=== PATIENT | female | born 1960 | race Caucasian/White ===

== ENCOUNTER → 2023-05-25 | Outpatient (CLI) | payer BC, SELFPAY ==
--- NOTE | 2023-05-25 15:28 | BI_ITS ---
MAMMOGRAPHY - BILATERAL SCREENING REASON FOR EXAM: Female, 62 years old. Routine annual screening examination. PERTINENT HISTORY: Non-contributory. TECHNIQUE: Digital bilateral breast fátima (3D mammographic acquisition) in the CC and MLO projections. 2-D mediolateral oblique (MLO) and craniocaudad (CC) views of both breasts were obtained. CAD: Full Field Digital Mammography with Computer Added Detection was performed. COMPARISON: Comparison is made with prior outside examination to generate third 2022. FINDINGS: Breast Composition: The breasts are heterogeneously dense, which may obscure small masses. There are no dominant masses or suspicious calcifications. Stable asymmetry of breast tissue were more breast tissue is seen in the right breast as compared to the left side. No other significant abnormalities are identified. There has been no significant change since the prior study. BI/SCRN MAMM (CAD)W/FÁTIMA BILAT IMPRESSION: Stable bilateral screening mammogram. Yearly follow-up mammogram recommended. (A) ASSESSMENT CATEGORY: BIRADS Category 2: Benign. A letter regarding these results will be sent to the patient by the facility within 30 days. Approximately 10% of breast cancers are not detected by mammography. A normal mammogram should not delay biopsy of a clinically suspicious abnormality. [id number] Electronically Signed: Kendrick Burch MD at 9:00 EDT ,
--- NOTE | 2023-05-25 15:32 | BD_ITS ---
STUDY: DUAL ENERGY X-RAY ABSORPTIOMETRY / DXA REASON FOR EXAM: Female, 62 years old. [id number] TECHNIQUE: Bone Mineral Density (BMD) measurements of lumbar spine and bilateral hips were obtained. COMPARISON: None. FINDINGS: Lumbar Spine (L1-L4): g/cm2 (0.909) / T-score (-1.3) / Z-score (0.4) Findings are suggestive of osteopenia with a low fracture risk. Left Femur Total: g/cm2 (0.703) / T-score (-2.0) / Z-score (-0.8) Left Femoral Neck: g/cm2 (0.545) / T-score (-2.7) / Z-score (-1.3) Right Femur Total: g/cm2 (0.722) / T-score (-1.8) / Z-score (-0.7) Right Femoral Neck: g/cm2 (0.577) / T-score (-2.4) / Z-score (-1.0) BD/Dexa Bone Density Study IMPRESSION: The patient is considered osteoporotic as outlined below according to World Costa Organization (WHO) criteria with a high fracture risk. Reference Information: The T-score is the number of standard deviations above or below the standard which is normal for young adults at their peak bone mineral density. The World Health Organization (WHO) interprets the T-scores as follows: Above -1 Normal bone density Between -1 and -2.5 Osteopenia Equal to / or below -2.5 Osteoporosis As a practical clinical guideline, osteopenia may be graded as follows: Mild -1 through -1.5 Moderate -1.6 through -2.0 Severe -2.1 through -2.4 The Z-score is the number of standard deviations above or below age-matched controls. A Z-score of less than -1.5 would be considered abnormal. References: 1. NIH Osteoporosis and Related Bone Diseases www osteo.org 2. International Society for Clinical Densitometry www iscd.org 3. National Osteoporosis Foundation www nof.org Electronically Signed: Kendrick Burch MD at 15:15 EDT ,
--- OUTSIDE RECORDS SUMMARY | 2023-05-26 02:16 | XMS RPT_ITS | CCD ---
Author Name Unknown Address [id number] [place] [address] Organization [facility] Care Team Providers Care Senior Contracts Administrator Name Role Phone JULIO WALSH Unavailable Unavailable STENCEL, JULIO Brown Unavailable Unavailable Stencel, Julio Unavailable Unavailable Stencel, Julio Unavailable Unavailable Stencel, Julio Unavailable Unavailable Stencel, Julio Unavailable Unavailable Stencel, Julio Unavailable Unavailable Stencel, Julio Unavailable Unavailable Stencel, Julio Unavailable Unavailable Stencel, Julio Unavailable Unavailable Stencel, Julio Brown Unavailable Unavailable Unavailable JULIO WALSH Referring Unavailab le STENCEL, JULIO JAIME Attending Unavailab le STENCEL, JULIO JAIME Primary Care Unavailab le STENCEL, JULIO JAIME Primary Care Unavailab le STENCEL, JULIO JAIME Referring Unavailab le STENCEL, JULIO JAIME Attending Unavailab le Stencel Julio KILGORE Primary Care Provider Julio Walsh MD Unavailable Stensharon, Dr. Julio Jaime Referring Unava ilable Stencel, Dr. Julio Jaime Attending Unava ilable Stencel, Dr. Julio Jaime Primary Care Unava ilable Stencel, Dr. Julio Jaime Attending Unava ilable Stencel, Dr. Julio Jaime Primary Care Unava ilable STENCEL, JULIO Referring Unavailable SADIA SETHI C Attending Unavailable STENCELJULIO Referring Unavailable STENCELJULIO Primary Care Unavailable LADONNA SADIA C Referring Unavailable STENCELJULIO Primary Care Unavailable ANNA ALLISON Referring Unavailable STENCELJULIO Primary Care Unavailable LADONNA SADIA C Referring Unavailable STENCEL, JULIO Brown Primary Care Unavailable SADIA SETHI C Referring Unavailable STENCEL, JULIO Brown Primary Care Unavailable STENCELJULIO Primary Care Unavailable STENCELJULIO Attending Unavailable STENCEL, JULIO D Primary Care Unavailable ANNA ALLISON Attending Unavailable JULIO WALSH Primary Care Unavailable JULIO WALSH Attending Unavailable JULIO WALSH Primary Care Unavailable Allergies Allergy Classification Reported Allergen(s) Allergy Type Date of Onset Reaction(s) Facility (1 source) No Known Medication Allergies; Translations: [No Known Medication Allergies] Propensity to adverse reactions to drug (disorder) [facility] Repository Medications Current Medications Medication Drug Class(es) Dates Sig (Normalized) Sig (Original) acetaminophen 250 mg / aspirin 250 mg / caffeine 65 mg oral tablet (5 sources) Platelet Aggregation Inhibitor, Nonsteroidal Anti-inflammatory Drug, Central Nervous System Stimulant, Methylxanthine take 1 tablet by mouth every six hours as needed aspirin-acetaminophen- caffeine (Excedrin Migraine) 250-250-65 mg tablet Take 1 tablet by mouth every 6 hours if needed for headaches. 0 Active ascorbic acid 100 mg/ml oral solution (5 sources) Vitamin C ascorbic acid (V itamin C) 500 mg/5 mL liquid Take by mouth once daily. 0 Active calcium carb-vitamin D3-vit K2 600 mg-1,000 unit-90 mcg tablet (4 sources) take 1 tablet by mouth once daily calcium carb-vitamin D3-vit K2 600 mg-1,000 unit-90 mcg tablet Take 1 tablet by mouth once daily. 0 Active calcium citrate 250 mg / ergocalciferol 100 mg oral tablet (5 sources) Provitamin D2 Compound take 1 tablet by mouth twice daily calcium citrate-vitamin D2 250 mg-2.5 mcg (100 unit) tablet Take 1 tablet by mouth 2 times a day. 0 Active cyclobenzaprine hydrochloride 10 mg oral tablet (6 sources) Muscle Relaxant Start: 12-04-19 End: 12-03-19 24 take 1 tablet by mouth once daily in the evening cyclobenzaprine (Flexeril) 10 mg tablet Indications: Thoracolumbar back pain Take 1 tablet (10 mg) by mouth once daily in the evening. 30 tablet 11 12/03/2022 12/03/2023 Active hydroCHLOROthiazide 12.5 mg oral capsule (17 sources) Thiazide Diuretic Start: 03-01-20 23 End: 02-29-20 24 take 1 capsule by mouth once daily hydroCHLOROthiazide (Microzide) 12.5 mg capsule Indications: Hypertension, unspecified type Take 1 capsule (12.5 mg) by mouth once daily. 90 capsule 3 03/01/2023 02/29/2024 Active Completed/Discontinued Medications Medication Drug Class(es) Dates Sig (Normalized) Sig (Original) diazePAM 2 mg oral tablet (2 sources) Benzodiazepine Start: 01-18-2023 End: 03-16-2023 diazePAM (Valium) 2 mg tablet Indications: Anxiety Take 1 an hour before MRI. Repeat if needed. 2 tablet 0 01/18/2023 03/16/2023 Discontinued (Therapy completed) Progesterone CREA (11 sources) Progesterone CRE A 1 GEORGE, TOPICAL, APPLY TO THIGHS DAILY Quantity: 0 Refills: 0 Ordered: 07-Feb-2019 DO Active terbinafine 250 mg oral tablet (8 sources) Allylamine Antifungal Start: 02-13-2019 take 1 tablet by mouth once daily Terbinafine HCl - 250 MG Oral Tablet TAKE 1 TABLET DAILY DIRECTED. Quantity: 90 Refills: 0 Ordered: 15-Feb-2020 Julio Walsh MD Start : 13-Feb-2019 Active Unspecified Medication (11 sources) Unspecified Medication ESTROGEN CREAM COMPOUNDED AT [facility] Quantity: 0 Refills: 0 Ordered: 15-Feb-2020 DO Active Problems Active Problems Problem Classification Problem Date Documented Date Episodic/Chronic Essential hypertension (20 sources) Hypertensive disorder; Translations: [Unspecified essential hypertension] Onset: 09-28-2022 09-28-2022 Chronic Headache; including migraine (17 sources) Migraine; Translations: [Migraine, unspecified, without mention of intractable migraine without mention of status migrainosus] Onset: 09-28-2022 09-28-2022 Chronic Immunizations and screening for infectious disease (20 sources) Patient encounter status; Translations: [Other specified vaccination] Resolved: 02-15-2020 04-15-2023 Episodic Other circulatory disease (4 sources) Other specified symptoms and signs involving the circulatory and respiratory systems; Translations: [Other symptoms involving cardiovascular system] Onset: 03-25-2023 03-25-2023 Episodic Other connective tissue disease (4 sources) Low back pain; Translations: [Myalgia, other site] Onset: 03-19-2023 02-25-2023 Episodic Other connective tissue disease (2 sources) Myalgia, other site; Translations: [Myalgia, other site] Onset: 03-19-2023 Episodic Other ear and sense organ disorders (3 sources) Tinnitus; Translations: [Other specified disorders of right ear] 03-16-2023 Episodic Other ear and sense organ disorders (4 sources) Other specified disorders of right ear; Translations: [Other specified disorders of right ear] Onset: 03-16-2023 Episodic Other nervous system disorders (2 sources) Other chronic pain; Translations: [Other chronic pain] Onset: 02-25-2023 Chronic Other non-traumatic joint disorders (3 sources) Chronic pain of right upper limb; Translations: [Pain in joint, shoulder region] Episodic Other nutritional; endocrine; and metabolic disorders (3 sources) Overweight in adulthood with body mass index of 25 or more but less than 30; Translations: [Overweight] Episodic Other screening for suspected conditions (not mental disorders or infectious disease) (6 sources) Encounter for screening mammogram for malignant neoplasm of breast; Translations: [Encntr screen mammogram for malignant neoplasm of breast] Onset: 03-17-2022 Episodic Residual codes; unclassified (12 sources) Menopause present; Translations: [Symptomatic menopausal or female climacteric states] 04-15-2023 Episodic Residual codes; unclassified (3 sources) Insomnia; Translations: [Insomnia, unspecified] Episodic Residual codes; unclassified (2 sources) Asymptomatic menopausal state; Translations: [Asymptomatic menopausal state] Onset: 04-15-2023 Episodic Spondylosis; intervertebral disc disorders; other back problems (1 source) Spondylosis without myelopathy or radiculopathy, lumbar region; Translations: [Spondylosis w/o myelopathy or radiculopathy, lumbar region] Onset: 12-04-2022 Chronic Unclassified (4 sources) Unspecified lump in the left breast, unspecified quadrant; Translations: [Unspecified lump in the left breast, unspecified quadrant] Onset: 08-24-2017 Unclassified (4 sources) Low back pain, unspecified; Translations: [Low back pain, unspecified] Onset: 12-03-2022 Past or Other Problems Problem Classification Problem Date Documented Date Episodic/Chronic Abdominal pain (17 sources) Indigestion; Translations: [Dyspepsia and other specified disorders of function of stomach] Onset: 09-28-2022 09-28-2022 Episodic Mycoses (17 sources) Onychomycosis of toenails; Translations: [Dermatophytosis of nail] Onset: 09-28-2022 09-28-2022 Episodic Other nervous system disorders (16 sources) Loss of taste; Translations: [Disturbances of sensation of smell and taste] Onset: 09-28-2022 09-28-2022 Episodic Spondylosis; intervertebral disc disorders; other back problems (17 sources) Backache; Translations: [Thoracolumbar back pain] Onset: 12-03-2022 12-03-2022 Episodic Unclassified (3 sources) Low back pain, unspecified; Translations: [Low back pain, unspecified] Onset: 12-03-2022 Unclassified (3 sources) Onset: 03-19-2023 03-19-2023 Results Test Name Value Interpretation Reference Range Facil ity Vital Signs Date Time Vital Sign Value Performing Clinician Facility 04-15-2023 07:57-0500 Body height 170.2 cm Julio Walsh MD Work Phone: [facility] 04-15-2023 07:57-0500 Body mass index (BMI) [Ratio] 25.87 kg/m2 Julio Walsh MD Work Phone: [facility] 04-15-2023 07:57-0500 Body weight 74.93 kg Julio Walsh MD Work Phone: [facility] 04-15-2023 07:57-0500 Diastolic blood pressure 76 mm[Hg] Julio Walsh MD Work Phone: [facility] 04-15-2023 07:57-0500 Heart rate 77 /min Julio Walsh MD Work Phone: [facility] 04-15-2023 07:57-0500 SaO2% (BldA) [Mass fraction] 97 % Julio Walsh MD Work Phone: [facility] 04-15-2023 07:57-0500 Systolic blood pressure 132 mm[Hg] Julio Walsh MD Work Phone: [facility] 03-16-2023 13:30-0500 Body height 170.2 cm Anna Allison MD Work Phone: [facility] 03-16-2023 13:30-0500 Body mass index (BMI) [Ratio] 25.83 kg/m2 Anna Allison MD Work Phone: [facility] 03-16-2023 13:30-0500 Body weight 74.8 kg Anna Allison MD Work Phone: [facility] 03-16-2023 13:30-0500 Diastolic blood pressure 72 mm[Hg] Anna Allison MD Work Phone: [facility] 03-16-2023 13:30-0500 Heart rate 62 /min Anna Allison MD Work Phone: [facility] 03-16-2023 13:30-0500 SaO2% (BldA) [Mass fraction] 98 % Anna Allison MD Work Phone: [facility] 03-16-2023 13:30-0500 Systolic blood pressure 140 mm[Hg] Anna Allison MD Work Phone: [facility] 02-25-2023 13:05-0500 Body height 170.2 cm Sadiapreston Sethi PA-C Work Phone: [facility] 02-25-2023 13:05-0500 Body mass index (BMI) [Ratio] 26.47 kg/m2 Sadiapreston Sethi PA-C Work Phone: [facility] 02-25-2023 13:05-0500 Body weight 76.66 kg Sadiapreston Sethi PA-C Work Phone: [facility] 02-25-2023 13:05-0500 Diastolic blood pressure 99 mm[Hg] Sadia Sethi PA-C Work Phone: [facility] 02-25-2023 13:05-0500 Heart rate 62 /min Sadiapreston Sethi PA-C Work Phone: [facility] 02-25-2023 13:05-0500 Respiratory rate 20 /min Sadiapreston Sethi PA-C Work Phone: [facility] 02-25-2023 13:05-0500 Systolic blood pressure 159 mm[Hg] Sadia Sethi PA-C Work Phone: [facility] 12-03-2022 13:44-0400 Body height 170.2 cm Julio Walsh MD Work Phone: [facility] 12-03-2022 13:44-0400 Body mass index (BMI) [Ratio] 26.2 kg/m2 Julio Walsh MD Work Phone: [facility] 12-03-2022 13:44-0400 Body weight 75.89 kg Julio Walsh MD Work Phone: [facility] 12-03-2022 13:44-0400 Diastolic blood pressure 80 mm[Hg] Julio Walsh MD Work Phone: [facility] 12-03-2022 13:44-0400 Heart rate 61 /min Julio Walsh MD Work Phone: [facility] 12-03-2022 13:44-0400 SaO2% (BldA) [Mass fraction] 95 % Julio Walsh MD Work Phone: [facility] 12-03-2022 13:44-0400 Systolic blood pressure 148 mm[Hg] Julio Walsh MD Work Phone: [facility] 04-13-2022 15:59-0500 Body height 170.18 cm Julio Walsh Work Phone: [facility] Work Phone: 04-13-2022 15:59-0500 Body mass index (BMI) [Ratio] 26.56 kg/m2 Julio Walsh Work Phone: [facility] Work Phone: 04-13-2022 15:59-0500 Body surface area Derived from formula 1.89 m2 Julio Walsh Work Phone: [facility] Work Phone: 04-13-2022 15:59-0500 Body weight 76.91 kg Julio Walsh Work Phone: [facility] Work Phone: 04-13-2022 15:59-0500 Diastolic blood pressure 86 mm[Hg] Julio Walsh Work Phone: [facility] Work Phone: 04-13-2022 15:59-0500 Heart rate 57 /min Julio Walsh Work Phone: [facility] Work Phone: 04-13-2022 15:59-0500 SaO2% (BldA) [Mass fraction] 98 % Julio Walsh Work Phone: [facility] Work Phone: 04-13-2022 15:59-0500 Systolic blood pressure 130 mm[Hg] Julio Walsh Work Phone: [facility] Work Phone: 02-26-2022 15:56-0500 Body height 170.18 cm Julio Walsh Work Phone: [facility] Work Phone: 02-26-2022 15:56-0500 Body mass index (BMI) [Ratio] 26.21 kg/m2 Julio Adornocel Work Phone: [facility] Work Phone: 02-26-2022 15:56-0500 Body surface area Derived from formula 1.87 m2 Julio Walsh Work Phone: [facility] Work Phone: 02-26-2022 15:56-0500 Body weight 75.89 kg Julio Walsh Work Phone: [facility] Work Phone: 02-26-2022 15:56-0500 Diastolic blood pressure 84 mm[Hg] Julio Walsh Work Phone: [facility] Work Phone: 02-26-2022 15:56-0500 Heart rate 62 /min Julio Walsh Work Phone: [facility] Work Phone: 02-26-2022 15:56-0500 SaO2% (BldA) [Mass fraction] 97 % Julio Walsh Work Phone: [facility] Work Phone: 02-26-2022 15:56-0500 Systolic blood pressure 128 mm[Hg] Julio Walsh Work Phone: [facility] Work Phone: 02-20-2021 15:56-0500 Body height 170.18 cm Julio Walsh Work Phone: [facility] Work Phone: 02-20-2021 15:56-0500 Body mass index (BMI) [Ratio] 26.21 kg/m2 Julio Walsh Work Phone: [facility] Work Phone: 02-20-2021 15:56-0500 Body surface area Derived from formula 1.87 m2 Julio Walsh Work Phone: [facility] Work Phone: 02-20-2021 15:56-0500 Body temperature 96.9 [degF] Julio Walsh Work Phone: [facility] Work Phone: 02-20-2021 15:56-0500 Body weight 75.92 kg Julio Walsh Work Phone: [facility] Work Phone: 02-20-2021 15:56-0500 Diastolic blood pressure 80 mm[Hg] Julio Walsh Work Phone: [facility] Work Phone: 02-20-2021 15:56-0500 Heart rate 57 /min Julio Walsh Work Phone: [facility] [facility] Work Phone: 02-20-2021 15:56-0500 SaO2% (BldA) [Mass fraction] 98 % Julio Walsh Work Phone: [facility] Work Phone: 02-20-2021 15:56-0500 Systolic blood pressure 134 mm[Hg] Julio Brown Jillian Work Phone: [facility] [facility] Work Phone: Encounters Encounter Date Encounter Type Care Provider Facility Start: 04-15-2023 End: 04-15-2023 ambulatory [facility] Start: 04-15-2023 End: 04-15-2023 Encounter for general adult medical examination without abnormal findings [facility] Ambulatory Start: 04-15-2023 End: 04-15-2023 Patient encounter status Julio Walsh MD Work Phone: [facility] Work Phone: Start: 04-15-2023 End: 04-15-2023 Periodic preventive med est patient 40-64yrs Julio Walsh MD Work Phone: [facility] Procedures Date Procedure Procedure Detail Performing Clinician Start: 04-10-2023 CBC panel - Blood by Automated count JULIO WALSH Start: 04-10-2023 Comprehensive metabo lic 2000 panel - Serum or Plasma JULIO WALSH Start: 04-10-2023 Thyrotropin [Units/v olume] in Serum or Plasma JULIO WALSH Start: 04-06-2023 FOLLOW UP IN PHYSICA L THERAPY SADIA SETHI Start: 03-30-2023 FOLLOW UP IN PHYSICA L THERAPY SADIA SETHI Start: 03-25-2023 VASC US CAROTID LEA RY DUPLEX BILATERAL SADIA SETHI Start: 03-25-2023 Duplex scan extracra nial art compl bi study Anna Allison MD Work Phone: Start: 03-19-2023 AMB REFERRAL TO PHYS ICAL THERAPY SADIA SETHI Start: 02-25-2023 AMB REFERRAL TO PAIN MEDICINE SADIA SETHI Start: 03-17-2022 Mammography Julio Garcia MD Work Phone: Start: 02-25-2022 Lipid 1996 panel - S luis enrique or Plasma Julio Walsh MD Work Phone: Appendectomy Julio Carvajal el Work Phone: Hysterectomy Julio Carvajal el Work Phone: Plan of Treatment Date Care Activity Detail Author Start: 02-25-2027 Lipid panel Lipid Panel [facility] Start: 04-20-2024 End: 04-20-2024 Patient encounter procedure 04/20/2024 8:00 AM EST Office Visit [facility] [address] [place] [id number] Julio Walsh MD [address] [place], [place] [id number] [facility] Start: 03-17-2024 Screening for malignant neoplasm of colon [facility] Start: 04-22-2023 End: 04-22-2023 Patient encounter procedure [facility] Start: 04-15-2023 EPV, Provider: Julio Walsh, Status: Pen, Time: 3:40 PM EPV, Provider: Julio Walsh, Status: Pen, Time: 3:40 PM [place] [place]: Start: 04-15-2023 End: 04-15-2023 Patient encounter procedure 04/15/2023 3:40 PM EST Office Visit [facility] [address] [place] [phone] [facility] [place] [id number] [facility] Start: 04-15-2023 End: 04-15-2024 CBC panel - Blood by Automated count CBC Lab Routine Primary hypertension Expected: 04/15/2023 (Approximate), Expires: 04/15/[address] [facility] Work Phone: Immunizations Immunization Date Immunization Notes Care Provider Fa cility 07-12-2020 Moderna COVID-19 Vaccine 100 MCG/0.5ML Intramuscular Suspension Julio Walsh Work Phone[place] [place]: Payers Date Payer Category Payer Unknown [id number] 2017 Unknown 1960 Unknown [id number] 2.16.84 [id number] 1959 Unknown [id number] 2.16.84 [id number]. 1959 Unknown [id number] 2.16.84 [id number] 1959 Unknown [id number] 2.16. [id number] 1959 Unknown [id number] 2.16. [id number] 1959 Unknown [id number] 2.16.8 [id number] 1959 Unknown [id number] 2.16.8 [id number] 1959 Unknown [id number] 2.16.84 [id number] 1959 Unknown [id number] 2.16.84 [id number] 1959 Unknown [id number] 2.16.84 [id number] 1959 Unknown [id number] 2.16.84 [id number] 1959 Unknown [id number] 2.16.84 [id number] 1959 Unknown [id number] 2.16.8 [id number] 1959 Unknown [id number] 2.16.8 [id number] 1959 Unknown [id number] 2.16.8 [id number] 1959 Unknown [id number] 2.16.8 [id number] Social History Date Type Detail Facility Start: 12-03-2022 End: 02-25-2023 Never chewed tobacco Never chewed tobacco [facility] Start: 12-03-2022 End: 03-16-2023 Tobacco smoking status NHIS Never smoked tobacco [facility] Start: 12-03-2022 End: 03-16-2023 Tobacco use and exposure Smokeless tobacco non-user [facility] Work Phone: Start: 12-03-2022 End: 04-15-2023 Alcohol intake Lifetime non-drinker (finding) [facility] Work Phone: Start: 12-03-2022 End: 02-25-2023 Tobacco use panel [facility] Start: 1960 Sex Assigned At Not on file [facility] Work Phone: Start: 02-15-2023 End: 04-15-2023 Exposure to SARS-CoV-2 (event) Not sure [facility] NEGATED: Highlighted rowStart: EDNAF History of tobacco use Passive smoker [facility] Work Phone: Clinical Notes 12-03-2022 to 04-15-2023 Julio Walsh MD - 04/15/2023 8:00 AM Jyoti Allison MD - 03/16/2023 1:40 PM ESTPatient InstructionsSadia Sethi PA-C - 02/25/2023 1:00 PM EST Note Date & Type Note Facility 04-15-2023 History of Presen t illness Narrative Subjective Patient ID: Lurdes Peck is a 62 y.o. female who presents for Annual Exam (Rev labs). HPI Since the last office visit there have been no interval operations, hospitalizations, important illnesses or injuries. HTN-Takes and tolerates meds without side effects. No alcohol. no tobacco. no exercise. low salt. Reviewed recommendation for 150 minutes of exercise per week including 2 days of weight training if over age 50 Low back pain- did sweta had periumbilical pain for a co weeks Did ph th after pain mgmt Review of Systems General-no fatigue weight to within 10 pounds ENT no problems with vision swallowing Cardiac no chest pains palpitations change in exercise tolerance or capacity Pulmonary no cough shortness of breath GI no heartburn or abdominal pain Musculoskeletal thoracolumbar joint pains Objective BP 132/76 Pulse 77 Ht 1.702 m (5' 7 ) Wt 74.9 kg (165 lb 3.2 oz) SpO2 97% BMI 25.87 kg/m Physical Exam General: Alert, No acute distress. Appears stated age Eye: Pupils are equal, round and reactive to light, Extraocular movements are intact, Normal conjunctiva. Neck: Supple, Non-tender, No carotid bruit, No jugular venous distention, No lymphadenopathy, No thyromegaly. Respiratory: Lungs are clear to auscultation, Respirations are non-labored, Breath sounds are equal. Cardiovascular: Normal rate, Regular rhythm, No murmur. Gastrointestinal: Soft, Non-tender, No organomegaly. No solid or pulsatile mass Integumentary: Warm, Dry. No concerning lesions on exposed areas Neurologic: Alert, Oriented. Gross and fine motor intact, CN 2-12 intact Psychiatric: Cooperative, Appropriate mood & affect. Assessment/Plan Problem List Items Addressed This Visit ICD-10-CM Hypertension I10 Relevant Orders CBC Comprehensive Metabolic Panel Follow Up In Primary Care - Established Other Visit Diagnoses Codes Wellness examination - Primary Z00.00 Breast cancer screening by mammogram Z12.31 Relevant Orders BI mammo bilateral screening tomosynthesis Menopause Z78.0 Relevant Orders XR DEXA bone density documented in this encounter [facility] Work Phone: 03-16-2023 History of Presen t illness Narrative Subjective: Lurdes Peck is a 62 y.o. female who presents to clinic today for POUNDING IN RIGHT EAR (Since mid January off and on) Ear pain: - right sided only, started in January, happening on and off - it comes and goes without any known exacerbating factors - got dehydrated last week and her ear was really bothered by that - tylneol and ibuprofen are not very helpful - it is not worse when she lies down, notices it more during the daytime - has headaches off and on - no chest pain Review of Systems Assessment/Plan: Lurdes Peck is a 62 y.o. female with a history of hypertension, back pain who presents to clinic today to address the following issues: 1. Pounding noise in right ear Vascular US Carotid Artery Duplex Bilateral - Acute problem, unresolved, new to this provider, requires further workup and treatment - discussed with Lurdes that this could be related to elevated blood pressure or related to carotid artery pathology - she will take a BP log at home and bring to her next appointment as well as obtianing US of bilateral carotid arteries - previously lipid panel looked good Problem List Items Addressed This Visit None Visit Diagnoses Pounding noise in right ear - Primary Relevant Orders Vascular US Carotid Artery Duplex Bilateral Patient Instructions Take your blood pressure daily and also take it when your ear is pounding. Follow up: 1 month Return precautions discussed. An After Visit Summary was given to the patient. All questions were answered and patient in agreement with plan. Objective: BP 140/72 Pulse 62 Ht 1.702 m (5' 7 ) Wt 74.8 kg (164 lb 14.4 oz) SpO2 98% BMI 25.83 kg/m Physical Exam Vitals and nursing note reviewed. Constitutional: General: She is not in acute distress. Appearance: Normal appearance. HENT: Head: Normocephalic and atraumatic. Right Ear: Tympanic membrane and ear canal normal. There is no impacted cerumen. Left Ear: Tympanic membrane and ear canal normal. There is no impacted cerumen. Mouth/Throat: Mouth: Mucous membranes are moist. Eyes: General: No scleral icterus. Right eye: No discharge. Left eye: No discharge. Extraocular Movements: Extraocular movements intact. Conjunctiva/sclera: Conjunctivae normal. Neck: Vascular: Carotid bruit present. Comments: Right sided carotid bruit Cardiovascular: Rate and Rhythm: Normal rate and regular rhythm. Pulmonary: Effort: No respiratory distress. Skin: General: Skin is warm and dry. Neurological: General: No focal deficit present. Mental Status: She is alert and oriented to person, place, and time. Psychiatric: Attention and Perception: Attention normal. Mood and Affect: Mood normal. Speech: Speech normal. Behavior: Behavior normal. Cognition and Memory: Cognition and memory normal. Judgment: Judgment normal. I spent 15 minutes in total time for this visit including all related clinical activities before, during, and after the visit excluding other billable activities/procedure time. Anna Allison MD documented in this encounter [facility] Work Phone: 03-16-2023 Instructions Anna Allison MD - 03/16/2023 1:40 PM EST Take your blood pressure daily and also take it when your ear is pounding. documented in this encounter [facility] Work Phone: 02-25-2023 History of Presen t illness Narrative Subjective Patient ID: Lurdes Peck is a 62 y.o. female who presents for Back Pain (Patient complains of left lower back pain. She is unable to provide a specific timeline but states it's been bothering her for months . Patient denied a specific injury that lead to pain. Patient denied numbness or tingling. Patient rates her pain a 4/10 she describes it as a nagging pain .). Patient is a 62-year-old female. She presents today as a new patient with complaints of lower back pain. She has left-sided lower back pain without radiculopathy. It is worse midday after she has been sitting in her chair at work all day. She has tried different chairs and this has not made any change. 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 She has done massage without improvement. She has this discomfort that she rates a 4/10. She denies any incident or trauma. She feels that it is worse with sitting in the chair. Sometimes better with moving around. If she stands for long period of time she does have some back pain but it is in a different area. GABI score.. ORT score 0. BMI 26.47, education handout provided. Depression screen completed, negative. Smoking screen completed, negative. Review of Systems Constitutional: Negative. HENT: Negative. Eyes: Negative. Respiratory: Negative. Cardiovascular: Negative. Gastrointestinal: Negative. Endocrine: Negative. Genitourinary: Negative. Musculoskeletal: Positive for arthralgias and back pain. Skin: Negative. Allergic/Immunologic: Negative. Neurological: Negative. Hematological: Negative. Psychiatric/Behavioral: Negative. Objective Physical Exam Vitals and nursing note reviewed. Constitutional: Appearance: Normal appearance. She is normal weight. HENT: Head: Normocephalic and atraumatic. Right Ear: External ear normal. Left Ear: External ear normal. Nose: Nose normal. Mouth/Throat: Pharynx: Oropharynx is clear. Eyes: Pupils: Pupils are equal, round, and reactive to light. Cardiovascular: Rate and Rhythm: Normal rate and regular rhythm. Pulses: Normal pulses. Pulmonary: Effort: Pulmonary effort is normal. Musculoskeletal: General: Normal range of motion. Cervical back: Normal range of motion. Comments: Pain with palpation of the left lower back but seems very muscular in nature 5/5 lower extremity strength Skin: General: Skin is warm and dry. Neurological: General: No focal deficit present. Mental Status: She is alert and oriented to person, place, and time. Mental status is at baseline. Psychiatric: Mood and Affect: Mood normal. Behavior: Behavior normal. Thought Content: Thought content normal. Judgment: Judgment normal. MR lumbar spine wo IV contrast Order: [id number] Impression There is spondylosis of the lumbar spine. ELECTRONICALLY SIGNED BY: Koko Nichols MD Narrative EXAMINATION: MR LUMBAR SPINE WO CONTRAST CLINICAL HISTORY: Low back pain TECHNIQUE: Multiplanar multisequence images of the lumbar spine were obtained without contrast. COMPARISONS: NONE AVAILABLE FINDINGS: Counting reference: The first presacral vertebral body is labeled L5. There is preservation of the lordotic curvature of the lumbar spine with there is levoscoliosis with a Keys angle measurement of 9 degrees between T12 and L4 There is no acute fracture. There is preservation of the vertebral body heights. There is moderate intervertebral disc narrowing at T12-L1 with marginal osteophytes. There is mild narrowing at the remaining levels. The bone marrow signal is within normal limits. The distal cord and conus medullaris are within normal limits. The cauda equina is unremarkable. There is no prevertebral soft tissue swelling. There are cysts in the kidneys. T12-L1: There is a 2 mm symmetric disc bulge with mild bilateral facet arthrosis and ligamentum flavum hypertrophy. There is mild narrowing of the central canal with moderate bilateral neural foraminal narrowing. L1-2: There is no disc herniation, central canal narrowing, or neural foraminal narrowing. L2-3: There is no disc herniation, central canal narrowing, or neural foraminal narrowing. L3-4: There is a 2 mm symmetric disc bulge and moderate bilateral facet arthrosis with mild ligamentum flavum hypertrophy. There is mild narrowing of central canal and the bilateral neural foramina. L4-5: There is a 3 mm symmetric disc bulge and moderate bilateral facet arthrosis with mild ligamentum flavum hypertrophy. There is mild central canal and bilateral neural foraminal narrowing. L5-S1: There is no disc herniation, central canal narrowing, or neural foraminal narrowing. The visualized portions of the sacrum and iliac bones are within normal limits. Assessment/Plan Diagnoses and all orders for this visit: Muscle pain, lumbar - Referral to Physical Therapy; Future Chronic bilateral low back pain without sciatica - Referral to Pain Medicine Chronic left-sided low back pain without sciatica - Referral to Physical Therapy; Future Patient is a 62-year-old female with a past medical history significant for lower back pain. On examination this seems very muscular in nature. We reviewed the MRI. We discussed different options. We discussed OTC treatments that she could pursue. She is going to regularly take her muscle relaxer. We discussed a massage chair that she is going to trial. We discussed physical therapy for treatment of this. A requisition will be given. Follow-up in 4 to 6-week. Call the clinic sooner if necessary. OARRS reviewed. Gloria Oneill RN 02/25/23 1:12 PM documented in this encounter [facility] Work Phone: 12-03-2022 History of Presen t illness Narrative Subjective Patient ID: Lurdes Peck is a 62 y.o. female who presents for Back Pain. HPI back pain off and on for 1 yr, tried chiro,massage, mag and laser,ergonomic chairs, no xrayy Left side lower thoracic and lumbar, was off for a week and was doing well, btw and 1 day pain returns Review of Systems Denies fever chills or neurologic findings below the level of the pain. Objective BP 148/80 Pulse 61 Ht 1.702 m (5' 7 ) Wt 75.9 kg (167 lb 4.8 oz) SpO2 95% BMI 26.20 kg/m Physical Exam DTRs physiologic pain sensibility intact EHL strength is normal she is tender on the left side in the iliolumbar upper gluteus sciatic notch Assessment/Plan Problem List Items Addressed This Visit None Visit Diagnoses Thoracolumbar back pain - Primary Relevant Medications cyclobenzaprine (Flexeril) 10 mg tablet Other Relevant Orders XR thoracic spine complete 4+ views XR lumbar spine complete 4+ views Gave handout and discussed use of Marsha back exercises if not improved in 3 to 4 weeks she is to report documented in this encounter [facility] Work Phone: documented in this encounter [facility] Work Phone: Evaluation note* Diagnosis Muscle pain, lumbar- Primary Chronic bilateral low back pain without sciatica Chronic left-sided low back pain without sciatica documented in this encounter [facility] Work Phone: Evaluation note* Diagnosis Pounding noise in right ear- Primary documented in this encounter [facility] Work Phone: Evaluation note* Diagnosis Pounding noise in right ear Other specified symptoms and signs involving the circulatory and respiratory systems documented in this encounter [facility] Work Phone: Evaluation note* Diagnosis Wellness examination- Primary Breast cancer screening by mammogram Primary hypertension Unspecified essential hypertension Menopause Symptomatic menopausal or female climacteric states documented in this encounter [facility] Work Phone: History of Present illness Narrative* Since the last office visit there have been no interval operations, hospitalizations, important illnesses or injuries. * never colon, agrees to cologard * mmg utd * HTN-Takes and tolerates meds without side effects. No alcohol. no tobacco. walk exercise. low salt.Reviewed recommendation for 150 minutes of exercise per week including 2 days of weight training ifover age 50 * onychomycosis doing well and 1 wk/month [facility] Work Phone: History of Present illness Narrative* Since the last office visit there have been no interval operations, hospitalizations, important illnesses or injuries. * HTN-Takes and tolerates meds without side effects. No alcohol. no tobacco. some exercise. low salt.Reviewed recommendation for 150 minutes of exercise per week including 2 days of weight training ifover age 50 * Since the last office visit there have been no interval operations, hospitalizations, important illnesses or injuries. 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 reports she moves from room to room trying to sleep. When going on much greater than 1 year. Has no pain, urinary problems, reviewed the use of trazodonereviewed instruction on self hypnotism as a option nonpharmacologic for better sleep hygiene * right shoulder pain with decreased range of motion. No known injury. Reviewed exercises [employer] and if not improved in 2 weeks would consider injection.. * Has a couple pigmented lesions on back which appear to be seborrheic keratoses, the superior 1 was very lightly cryo would and recheck in 6 weeks if not resolved refer for Derm. The inferior 1 was clearly Connor K the superior 1 at enough irregular to the borders that consideration of a superficial spr eading would have to be entertained though I feel very very unlikely [facility] Work Phone: History of Present illness Narrative* Since the last office visit there have been no interval operations, hospitalizations, important illnesses or injuries. * HTN-Takes and tolerates meds without side effects. No alcohol. no tobacco. no exercise. low salt. Reviewed recommendation for 150 minutes of exercise per week including 2 days of weight training if over age 50 * Insomnia- talking and tolerating meds, SL- nil, HALIMA-1-2 times but falls right back asleep, no hangover, restorative sleep. Desires to continue med. * Rotator cuff tendinitis is improved but not resolved. RBA injection reviewed and agrees to same. * 40 mg Kenalog and 1 cc 0.5% bupivacaine without epinephrine was injected into the joint space usingsterile technique without complications. Right shoulder [facility] Work Phone: reason for referral (narrative)* Consultation (Routine) - Pending Review Specialty Diagnoses / Procedures Referred By Contac t Referred To Contact Physical Therapy Diagnoses Chronic left-sided low back pain without sciatica Muscle pain, lumbar Sadia Sethi PA-C [address] [place] [address] Referral ID Status Reason Start Date Expiration Date Visits Requested Visits Authorized [id number] Pending Review Specialty Services Required 3 02/25/2024 [address] [facility] Work Phone: Reason for referral (narrative)* Consultation (Routine) - Authorized Specialty Diagnoses / Procedures Referred By Contac t Referred To Contact Primary Care Diagnoses Primary hypertension Procedures Follow Up In Primary Care - Established Julio Walsh MD [address] [place] [address] Referral ID Status Reason Start Date Expiration Date V isits Requested Visits Authorized [id number] Authorized 04/15/2023 04/14/2024 1 1 * Imaging (Routine) - Pending Review Specialty Diagnoses / Procedures Referred By Contac t Referred To Contact Radiology Diagnoses Menopause Procedures XR DEXA bone density Julio Walsh MD [address] [place] [address] Referral ID Status Reason Start Date Expiration Date Visits Requested Visits Authorized [id number] Pending Review Perform Procedure 04/15/2023 04/14/2024 1 1 * Imaging (Routine) - Authorized Specialty Diagnoses / Procedures Referred By Contac t Referred To Contact Radiology Diagnoses Breast cancer screening by mammogram Procedures BI mammo bilateral screening tomosynthesis uJlio Walsh MD [address] [place] [address] Referral ID Status Reason Start Date Expiration Date Visits Requested Visits Authorized [id number] Authorized Perform Procedure 04/15/2023 04/14/2024 [address] [facility] Work Phone: Summary Purpose Family History No Family History Records FoundUnknown Family Member Name Dates Details Diagnosis unknown: Mother Status:Active Family history of myocardial infarction: Father(V17.3, Z82.49) Status:Active Family history of hypertensi on: Sister, Brother, Mother, Father(V17.49, Z82.49) Status:Active Unknown Family Member Name Dates Details Diagnosis unknown: Mother Status:Active Family history of myocardial infarction: Father(V17.3, Z82.49) Status:Active Family history of hypertensi on: Sister, Brother, Mother, Father(V17.49, Z82.49) Status:Active Unknown Family Member Name Dates Details Diagnosis unknown: Mother Status:Active Family history of myocardial infarction: Father(V17.3, Z82.49) Status:Active Family history of hypertensi on: Sister, Brother, Mother, Father(V17.49, Z82.49) Status:Active Unknown Family Member Name Dates Details Diagnosis unknown: Mother Status:Active Family history of myocardial infarction: Father(V17.3, Z82.49) Status:Active Family history of hypertensi on: Sister, Brother, Mother, Father(V17.49, Z82.49) Status:Active Unknown Family Member Name Dates Details Diagnosis unknown: Mother Status:Active Family history of myocardial infarction: Father(V17.3, Z82.49) Status:Active Family history of hypertensi on: Sister, Brother, Mother, Father(V17.49, Z82.49) Status:Active Unknown Family Member Name Dates Details Diagnosis unknown: Mother Status:Active Family history of myocardial infarction: Father(V17.3, Z82.49) Status:Active Family history of hypertensi on: Sister, Brother, Mother, Father(V17.49, Z82.49) Status:Active Unknown Family Member Name Dates Details Diagnosis unknown: Mother Status:Active Family history of myocardial infarction: Father(V17.3, Z82.49) Status:Active Family history of hypertensi on: Sister, Brother, Mother, Father(V17.49, Z82.49) Status:Active Unknown Family Member Name Dates Details Diagnosis unknown: Mother Status:Active Family history of myocardial infarction: Father(V17.3, Z82.49) Status:Active Family history of hypertensi on: Sister, Brother, Mother, Father(V17.49, Z82.49) Status:Active Unknown Family Member Name Dates Details Diagnosis unknown: Mother Status:Active Family history of myocardial infarction: Father(V17.3, Z82.49) Status:Active Family history of hypertensi on: Sister, Brother, Mother, Father(V17.49, Z82.49) Status:Active Unknown Family Member Name Dates Details Diagnosis unknown: Mother Status:Active Family history of myocardial infarction: Father(V17.3, Z82.49) Status:Active Family history of hypertensi on: Sister, Brother, Mother, Father(V17.49, Z82.49) Status:Active Unknown Family Member Name Dates Details Diagnosis unknown: Mother Status:Active Family history of myocardial infarction: Father(V17.3, Z82.49) Status:Active Family history of hypertensi on: Sister, Brother, Mother, Father(V17.49, Z82.49) Status:Active Advance Directives No Advanced Directives Records FoundNo Advanced Directives Records FoundNo Advanced Directives Records FoundNo Advanced Directives Records FoundNo Advanced Directives Records FoundNo Advanced Directives Records FoundNo Advanced Directives Records FoundNo Advanced Directives Records FoundNo Advanced Directives Records FoundNo Advanced Directives Records Found Chief Complaint 1 YR FU* 1 YEAR FU. REV LABS * MAMMO PROPOSED 6 WK FU. WOULD LIKE TO GO OVER BW 02/25/22. RIGHT SHOULDER PAIN X 2 MO Reason for Referral Specialty Diagnoses / Procedures Referred By Dhara clifford Referred To Contact Cardiology Diagnoses Pounding noise in right ear Procedures Vascular US Carotid Artery Duplex Bilateral Anna Allison MD [address] [place] [address] Referral ID Status Reason Start Date Expiration Date Visits Requested Visits Authorized [id number] Pending Review Perform Procedure 03/16/2023 03/15/2024 1 1 Referral ID Status Reason Start Date Expiration Date Visits Requested Visits Authorized [id number] Authorized Perform Procedure 03/16/2023 03/15/2024 1 1 Additional Source Comments INFORMATION SOURCE (unrecogn ized section and content) DATE CREATED AUTHOR AUTHOR[facility]S [facility]IZ AT[facility] DATE CREATED AUTHOR AUTHOR'S ORGANIZ ATION 02/21/2018 [facility] DATE CREATED AUTHOR AUTHOR'S ORGANIZ ATION 04/14/2022 [employer] DATE CREATED AUTHOR AUTHOR'S ORGANIZ ATION 04/15/2022 [facility] DATE CREATED AUTHOR AUTHOR'S ORGANIZ ATION 01/03/2023 [facility] DATE CREATED AUTHOR AUTHOR'S ORGANIZ ATION 01/26/2023 [facility] DATE CREATED AUTHOR AUTHOR'S ORGANIZ ATION 04/16/2023 [facility] DATE CREATED AUTHOR AUTHOR'S ORGANIZ ATION 04/18/2023 [facility] DATE CREATED AUTHOR AUTHOR'S ORGANIZ ATION 04/18/2023 [facility] Reason for Visit (unrecogniz ed section and content) Reason Comments Back Pain Patient complains of left lower back pain. She is unable to provide a specific timeline but states it's been bothering her for months . Patient denied a specific injury that lead to pain. Patient denied numbness or tingling. Patient rates her pain a 4/10 she describes it as a nagging pain . Specialty Diagnoses / Procedures Referred By Dhara clifford Referred To Contact Pain Medicine Diagnoses Chronic bilateral low back pain without sciatica Julio Walsh MD [address] [place] [address] [facility] [address] [place] [address] Referral ID Status Reason Start Date Expiration Date Visits Requested Visits Authorized [id number] Pending Review Specialty Services Required 3 01/04/2024 1 1 Reason Comments POUNDING IN RIGHT EAR Since mid January off and on Specialty Diagnoses / Procedures Referred By Contac t Referred To Contact Diagnoses Other specified disorders of right ear Procedures DC DUPLEX SCAN EXTRACRANIAL ART COMPL BI STUDY [facility] [address] [address] Referral ID Status Reason Start Date Expiration Date Visits Re quested Visits Authorized [id number] 1 1 Reason Comments Annual Exam Rev labs Care Teams (unrecognized sec tion and content) Senior Contracts Administrator Relationship Specialty Start Date End Date Julio Walsh MD [address] [place] [address] PCP - General 11/15/18 Julio Walsh MD [address] [place] [address] PCP - [facility] PCP 03/15/21 Senior Contracts Administrator Relationship Specialty Start Date End Date Julio Walsh MD [address] [place] [address] PCP - General 11/15/18 Julio Walsh MD [address] [place] [address] PCP - [facility] PCP 03/15/21 Senior Contracts Administrator Relationship Specialty Start Date End Date Julio Walsh MD [address] [place] [address] PCP - General 11/15/18 Julio Walsh MD [address] [place] [address] PCP - Mayra GUTIERREZ PCP 03/15/21 Senior Contracts Administrator Relationship Specialty Start Date End Date Julio Walsh MD [address] [facility] [place] [address] PCP - General 11/15/18 Julio Walsh MD [address] [place] [address] PCP - Mayra GUTIERREZ PCP 03/15/21 FOR RECORDS PERTAINING TO PATIENTS WHO ARE OR HAVE BEEN ENROLLED IN A CHEMICAL DEPENDENCY/SUBSTANCEABUSE PROGRAM, SOME INFORMATION MAY BE OMITTED. This clinical summary was aggregated from multiple sources. Caution should be exercised in using it in the provision of clinical care. This summary normalizes information from multiple sources, and as a consequence, information in this document may materially change the coding, format and clinical context of patient data. In addition, data may be omitted in some cases. CLINICAL DECISIONS SHOULD BE BASED ON THE PRIMARY CLINICAL RECORDS. [facility] [employer] [facility]. provides no warranty or guarantee of the accuracy or completeness of information in this document.
== END | disposition home or self-care (01) ==
LOC: OPBD 15:26
PROVIDERS: PCP Family Medicine; Referring Provider Family Medicine; Visit Provider Family Medicine
DX: Z12.31 Encounter for screening mammogram for malignant neoplasm of breast (principal); Z78.0 Asymptomatic menopausal state
CPT/HCPCS: 77063; 77067; 77080